=== PATIENT | female | born 1955 | race Caucasian/White ===

== ENCOUNTER 2016-08-14 13:59 | Observation (INO) | payer SELFPAY ==
[2016-08-14 15:05] LABS: BASOPHILS # (AUTO) 0.1 X10^3/uL (0.0-0.1); EOSINOPHILS # (AUTO) 0.8 x10^3/uL (0.0-0.2); EOSINOPHILS % (AUTO) 6.7 % (0.9-2.9); HEMATOCRIT 45.1 % (36.0-47.0); HEMOGLOBIN 15.2 g/dL (12.0-16.0); LYMPHOCYTES # (AUTO) 2.8 X10^3/uL (1.3-2.9); LYMPHOCYTES % (AUTO) 24.2 % (21.0-51.0); MEAN CORPUSCULAR HEMOGLOBIN 29.2 pg (27.0-34.0); MEAN CORPUSCULAR HGB CONC 33.7 g/dL (33.0-35.0); MEAN CORPUSCULAR VOLUME 86.8 fL (80.0-100.0); MEAN PLATELET VOLUME 9.5 fL (7.4-11.0); MONOCYTES # (AUTO) 0.7 x10^3/uL (0.3-0.8); MONOCYTES % (AUTO) 6.3 % (0.0-13.0); NEUTROPHILS % (AUTO) 61.8 % (42.0-75.0); PLATELET COUNT 237 X10^3/uL (150.0-450.0); RED CELL DISTRIBUTION WIDTH 13.4 % (11.6-16.5); WHITE BLOOD COUNT 11.4 X10^3/uL (3.6-10.0)
[2016-08-14 15:16] LABS: ALANINE AMINOTRANSFERASE 91 Units/L (12-78); ALBUMIN 3.8 g/dL (3.4-5.0); ALKALINE PHOSPHATASE 255 Units/L (46-116); ASPARTATE AMINO TRANSFERASE 46 Units/L (15-37); BLOOD UREA NITROGEN 14 mg/dL (7-18); CHLORIDE 103 mmol/L (98-107); GLUCOSE 90 mg/dL (65-99); SODIUM 141 mmol/L (136-145); TOTAL PROTEIN 8.1 g/dL (6.4-8.2); eGFR BLACK RACES > 60 (>60); eGFR NON BLACK RACES > 60 (>60)
--- NOTE | 2016-08-14 15:18 | DR.H&P ---
H&P - Chief Complaint Chief Complaint: trevino, dizziness, near syncope, htn - Allergies Allergies/Adverse Reactions: Allergies Allergy/AdvReac Type Severity Reaction Status Date / Time No Known Drug Allergy Allergy Verified 08/14/16 14:48 - History of Present Illness History of Present Illness: PT WAS A DIRECT ADMIT FOR NEW ONSET OF INTRACTABLE TREVINO AND NAUSEA. WITH DIZZINESS AND NEAR SYNCOPE. PT ADMITTED FOR CT HEAD, CAROTID BP CONTROL AND PAIN CONTROL - Past Medical History Past Medical History: Asthma, Dyslipidemia, Hypertension, Hypothyroidism - Past Surgical History Surgical History: Unknown - Social History Does patient currently use any type of tobacco product: No Have you used tobacco products in the last 12 months: No Type of Tobacco Use: None Does any household member use tobacco: No Alcohol Use: None Drug Use: None - Review of Systems Constitutional: Weakness Eyes: No Symptoms Reported ENT: Ear Pain Respiratory: No Symptoms Reported Cardiovascular: Light Headedness Gastrointestinal: Nausea Genitourinary: No Symptoms Reported Musculoskeletal: Neck Pain Skin: No Symptoms Reported Neurological: Weakness (DIZZINESS) - Physical Exam Vital Signs: Temperature 97.6 F Pulse Rate [Left Brachial] 65 Respiratory Rate 20 Blood Pressure [Left Arm] 144/72 O2 Sat by Pulse Oximetry 96 Oriented: Normal Eyes: Normal Ear: Normal Nose: Normal Throat: Normal Respiratory: Clear Throughout Cardiovascular: Normal : Normal Auscultation: Bowel Sounds: Normal Palpation: Normal Tenderness: Normal Skin: Normal Musculoskeletal: Tender Psychiatric: Anxiety Speech Pattern: Clear - Assessment/Plan (1) Intractable headache Qualifiers: Headache type: H Headache chronicity pattern: H Status: Acute Plan: ADMIT, CT HEAD. CAROTID ARTERY DOP. BP AND LIPID CONROL, EKG ON ADMISSION. ADMISSION LABS (2) Hypertension Qualifiers: Hypertension type: essential hypertension Qualified Code(s): I10 - Essential (primary) hypertension Status: Acute (3) Near syncope Status: Acute Plan: SEE ABOVE (4) Dizziness Status: Acute
--- NOTE | 2016-08-14 15:48 | CT ---
HISTORY: Headache and dizziness Study: CT brain without contrast Comparison: None Technique: Multiple axial images of the brain were obtained from the skull base to the vertex without administr ation of IV contrast. Sagittal and coronal reformations were provided. Findings: No acute intraparenchymal hemorrhage or mass can be identified. No extra-axial fluid collections ar e seen. No alteration in the attenuation of the brain parenchyma can be identified to suggest acute or subacute ischemic change. The ventricular system is symmetric and nondilated. The extracranial structures are grossly unremarkable. IMPRESSION: 1. No acute intracranial process can be identified. Reported By:
[2016-08-14 15:49] LABS: ERYTHROCYTE SEDIMENTATION RATE 13 MM/HOUR (0-20)
[2016-08-14] MEDS: NEURONTIN CAP 100 MG PO SCH ×2 (15:49→21:27)
--- NOTE | 2016-08-14 16:05 | RAD ---
HISTORY: Intractable headache, dizziness, near-syncope Study: Single view chest Comparison: 04/21/2016 Findings: The lungs are clear without consolidation, effusion or pneumothorax. The cardiac and mediastinal co ntours are within normal limits. The soft tissues are unremarkable. IMPRESSION: 1. No acute cardiopulmonary abnormality. Reported By:
[2016-08-14 16:27] LABS: BILIRUBIN,URINE NEGATIVE (NEGATIVE); BLOOD/HEMOGLOBIN,URINE NEGATIVE (NEGATIVE); GLUCOSE, URINE NEGATIVE (NEGATIVE); KETONES,URINE NEGATIVE (NEGATIVE); LEUKOCYTE ESTERASE ,URINE 3+ (NEGATIVE); NITRITES,URINE NEGATIVE (NEGATIVE); PROTEIN,URINE NEGATIVE (NEGATIVE); UROBILINOGEN,URINE NORMAL (NORMAL)
[2016-08-14 16:33] LABS: COLOR,URINE YELLOW (YELLOW)
[2016-08-14 16:34] LABS: APPEARANCE,URINE SLIGHTLY HAZY (CLEAR); BACTERIA,URINE 1+ /HPF (NEGATIVE); RBC,URINE 0-1 /HPF (NEGATIVE); SQUAMOUS EPITHELIAL CELL,UR MODERATE /HPF (NEGATIVE)
[2016-08-14 16:42] VITALS: BMI 30.1
[2016-08-14] MEDS ORDERED: PREVNAR 13 IM ONE (16:42)
[2016-08-14] MEDS ORDERED: NORCO 10/325 TAB PO PRN (16:53)
--- NOTE | 2016-08-14 16:54 | CT ---
HISTORY: Intractable headache, dizziness, near-syncope Study: CT cervical spine without contrast Comparison: None Technique: Multiple axial images of the cervical spine were obtained from the skull base to the thor acic inlet without administration of IV contrast. Sagittal and coronal reformats were performed and reviewed. Dose reduction techniques including Automated Exposure Control (AEC) and adjustment of mA and kV were utilized. Findings: Normal cervical alignment. Vertebral body heights are preserved. The disk spaces appear normal. The posterior elements are intact. No evidence of acute fracture or dislocation. The visualized prevertebral and paraspinal soft tissues appear normal. The visualized lung apices ar e clear. There is chronic odontogenic disease. IMPRESSION: 1. No acute osseous abnormality of the cervical spine. Reported By:
[2016-08-14] MEDS: ANTIVERT TAB 25 MG PO SCH (21:28)
[2016-08-15] MEDS: ANTIVERT TAB 25 MG PO SCH ×2 (05:27→14:55)
[2016-08-15 06:02] LABS: BASOPHILS # (AUTO) 0.1 X10^3/uL (0.0-0.1); BASOPHILS % (AUTO) 0.6 % (0.2-1.0); EOSINOPHILS # (AUTO) 0.6 x10^3/uL (0.0-0.2); EOSINOPHILS % (AUTO) 6.7 % (0.9-2.9); HEMATOCRIT 42.3 % (36.0-47.0); HEMOGLOBIN 14.3 g/dL (12.0-16.0); LYMPHOCYTES # (AUTO) 2.1 X10^3/uL (1.3-2.9); LYMPHOCYTES % (AUTO) 21.9 % (21.0-51.0); MEAN CORPUSCULAR HEMOGLOBIN 29.5 pg (27.0-34.0); MEAN CORPUSCULAR HGB CONC 33.8 g/dL (33.0-35.0); MEAN CORPUSCULAR VOLUME 87.5 fL (80.0-100.0); MEAN PLATELET VOLUME 10.1 fL (7.4-11.0); MONOCYTES # (AUTO) 0.7 x10^3/uL (0.3-0.8); MONOCYTES % (AUTO) 7.1 % (0.0-13.0); NEUTROPHILS # (AUTO) 6.1 x10^3/uL (2.2-4.8); NEUTROPHILS % (AUTO) 63.7 % (42.0-75.0); PLATELET COUNT 186 X10^3/uL (150.0-450.0); RED BLOOD COUNT 4.84 X10^6/uL (3.5-5.4); RED CELL DISTRIBUTION WIDTH 13.4 % (11.6-16.5); WHITE BLOOD COUNT 9.5 X10^3/uL (3.6-10.0)
[2016-08-15 06:24] LABS: ALANINE AMINOTRANSFERASE 76 Units/L (12-78); ALBUMIN 3.2 g/dL (3.4-5.0); ALKALINE PHOSPHATASE 212 Units/L (46-116); ASPARTATE AMINO TRANSFERASE 41 Units/L (15-37); BLOOD UREA NITROGEN 13 mg/dL (7-18); CALCIUM 8.6 mg/dL (8.5-10.1); CARBON DIOXIDE 29.6 mmol/L (21-32); CHLORIDE 107 mmol/L (98-107); COR CA(FOR HYPOALB) 9.2 mg/dL (8.5-10.1); CREATININE 0.59 mg/dL (0.55-1.02); GLUCOSE 87 mg/dL (65-99); SODIUM 144 mmol/L (136-145); TOTAL PROTEIN 6.8 g/dL (6.4-8.2); eGFR BLACK RACES > 60 (>60); eGFR NON BLACK RACES > 60 (>60)
--- NOTE | 2016-08-15 06:33 | VAS ---
HISTORY: Headache, dizziness, near-syncope Study: Carotid sonogram Comparison: None Technique: Multiple monreal scale and color flow Doppler images of the right and left carotid arterial system were obtained. The vertebral arterial system was evaluated as well. Findings: Normal color flow Doppler is seen throughout the right and left carotid arterial system. No hemodyn amically significant stenosis is seen based on velocity criteria. The right and left vertebral robinson keira demonstrate antegrade flow. IMPRESSION: 1. No hemodynamically significant stenosis. Reported By:
[2016-08-15] MEDS ORDERED: LIPITOR TAB 10 MG PO SCH (09:00)
[2016-08-15] MEDS ORDERED: [UNRECOGNIZED DRUG - OTHER] PO SCH (09:00)
[2016-08-15] MEDS ORDERED: FLEXERIL TAB 10 MG PO SCH (09:00)
[2016-08-15] MEDS ORDERED: TENORMIN PO SCH (09:00)
[2016-08-15] MEDS ORDERED: SYNTHROID 25 mcg TAB PO SCH (09:00)
[2016-08-15] MEDS: NEURONTIN CAP 100 MG PO SCH (10:24)
[2016-08-15 16:13] VITALS: BP 114/59
== END 2016-08-15 19:15 | disposition home or self-care (01) ==
LOC: MED/SURG 13:59
PROVIDERS: ADMIT Internal Medicine; ATTEND Internal Medicine
PROC: 3E0234Z Introduction of Serum, Toxoid and Vaccine into Muscle, Percutaneous Approach (ICD-10-PCS; principal; 2016-08-14)
DX: R55 Syncope and collapse (principal); R42 Dizziness and giddiness; R11.2 Nausea with vomiting, unspecified; I10 Essential (primary) hypertension; R51 Headache; E78.2 Mixed hyperlipidemia; E03.8 Other specified hypothyroidism; B96.1 Klebsiella pneumoniae [K. pneumoniae] as the cause of diseases classified elsewhere; Z23 Encounter for immunization
CPT/HCPCS: 36415; 70450; 71010; 72125; 80053; 81001; 85025; 85652; 86140; 87086; 87088; 87186; 93005; 93010; 93880; A4216; A4222; 90670; G0378

== ENCOUNTER → 2017-07-15 | Outpatient (CLI) | payer OTHER ==
--- NOTE | 2017-07-15 11:22 | MG ---
Examination: Bilateral screening mammogram. Clinical history: Routine screening. Technique: Digital CC and MLO views of both breasts were obtained. Computer aided detection analysis was performed and used during the interpretation. Comparison: 06/16/2016. Findings: The breasts are composed of scattered fibroglandular densities. Are multiple stable benign-appearing densities are present in the breasts bilaterally. Skin moles are present overlying both breasts. There is a new 7 mm rounded density present at approximately the 3 o'clock position in the left breas t in the middle depth. Additional imaging evaluation is recommended, with spot compression magnificat ion views in the CC and MLO projections, a lateral view of the left breast and a left breast ultrasou nd. No suspicious mass, area of architectural distortion or suspicious cluster of microcalcifications is noted in the right breast. Impression: 1. New density in the left breast, as described above. BI-RADS category 0 (ZERO) - ASSESSMENT INCOMPLETE; ADDITIONAL IMAGING IS NEEDED. Recommend immediate recall for additional imaging evaluation, as described above. Diagnostic CAD was utilized and reviewed. * 0 (ZERO) - ASSESSMENT INCOMPLETE; ADDITIONAL IMAGING IS NEEDED. * 0C - ASSESSMENT INCOMPLETE, NEEDS ADDITIONAL IMAGING EVALUATION AND/OR PRIOR MAMMOGRAMS FOR COMPARI SON. * 1/1 (ONE) - NEGATIVE. * 2/II (TWO) - BENIGN FINDINGS. * 3/III (THREE) - PROBABLY BENIGN FINDING; SHORT INTERVAL FOLLOW-UP SUGGESTED. * 4/IV (FOUR) - SUSPICIOUS ABNORMALITY; BIOPSY SHOULD BE CONSIDERED. * 5/V - HIGHLY SUSPICIOUS OF MALIGNANCY; BIOPSY SHOULD BE PERFORMED. * 6/IV - KNOWN BIOPSY PROVEN MALIGNANCY-APPROPRIATE ACTION SHOULD BE TAKEN. A NEGATIVE X-RAY REPORT SHOULD NOT DELAY BIOPSY IF A DOMINANT OR CLINICALLY SUSPICIOUS MASS IS PRESENT; 4 TO 8 PERCENT OF CANCERS ARE NOT IDENTIFIED BY X-RAY. A NEGATIVE REPORT MAY REINFORCE THE CLINICAL IMPRESSION. ADENOSIS AND DENSE BREASTS MAY OBSCURE AN UNDERLYING NEOPLASM. Reported By:
== END ==
LOC: RAD 09:07
PROVIDERS: ATTEND Internal Medicine
DX: Z12.31 Encounter for screening mammogram for malignant neoplasm of breast (principal)
CPT/HCPCS: 77067

== ENCOUNTER → 2017-07-21 | Outpatient (CLI) | payer OTHER ==
--- NOTE | 2017-07-21 14:37 | US ---
HISTORY: Abnormal screening mammography with new left breast nodule Left breast digital diagnostic mammography with CAD and left breast ultrasound. Comparison: June 16, 2016 and July 15, 2017 FINDINGS: Mammogram: ML, cc, and spot magnification CC and MLO projections of the left breast were obtained. S cattered fibroglandular tissue is seen to be present with a persistent irregular and ill-defined 7 mm hyperdense nodule in the upper outer quadrant which will be correlated with ultrasound. No skin thi ckening or nipple retraction is appreciated. Ultrasound: Multiple grayscale and color Doppler images of the upper outer quadrant left breast were obtained. At 3 o'clock approximately 4 cm from the nipple, there is a horizontally oriented macro lob ulated but predominantly smoothly marginated and well circumscribed anechoic cyst with posterior acou stical enhancement and no internal Doppler flow measuring 7 mm and likely corresponding to the mammog raphic findings with a few angulated margins and a small amount of internal debris most likely reflec ting a complex cyst. No suspicious solid mass is identified. IMPRESSION: Probably benign left breast nodule corresponding to a complex cyst sonographically for [facility] six-month follow-up left breast mammography and possibly ultrasound are recommended. ACR CATEGORY 3 - probably benign finding; short interval follow-up suggested. Diagnostic CAD was utilized and reviewed. * 0 (ZERO) - ASSESSMENT INCOMPLETE; ADDITIONAL IMAGING IS NEEDED. * 1/1 (ONE) - NEGATIVE. * 2/II (TWO) - BENIGN FINDINGS. * 3/III (THREE) - PROBABLY BENIGN FINDING; SHORT INTERVAL FOLLOW-UP SUGGESTED. * 4/IV (FOUR) - SUSPICIOUS ABNORMALITY; BIOPSY SHOULD BE CONSIDERED. * 5/V - HIGHLY SUSPICIOUS OF MALIGNANCY; BIOPSY SHOULD BE PERFORMED. A NEGATIVE X-RAY REPORT SHOULD NOT DELAY BIOPSY IF A DOMINANT OR CLINICALLY SUSPICIOUS MASS IS PRESENT; 4 TO 8 PERCENT OF CANCERS ARE NOT IDENTIFIED BY X-RAY. A NEGA TIVE REPORT MAY REINFORCE THE CLINICAL IMPRESSION. ADENOSIS AND DENSE BREASTS MAY OBSCURE AN UNDERLY ING NEOPLASM. Reported By:
== END ==
LOC: RAD 12:40
PROVIDERS: ATTEND Internal Medicine
DX: R92.2 Inconclusive mammogram (principal)
CPT/HCPCS: 76642; 77065